=== PATIENT | male | born 1965 | race Caucasian/White ===

== ENCOUNTER 2017-08-08 09:46 | Emergency (ER) | payer SELFPAY ==
[~2017-08-08] VITALS: Ht 188 cm; Wt 139.0 kg
[2017-08-08] MEDS ORDERED: FLEXERIL10 MG PO (10:55)
[2017-08-08] MEDS ORDERED: PREDNISONE20 MG PO (10:55)
[2017-08-08 11:24] VITALS: BP 178/106
== END 2017-08-08 11:24 | disposition home or self-care (01) ==
LOC: EME 09:46
DX: M54.12 Radiculopathy, cervical region (principal); I10 Essential (primary) hypertension; F41.9 Anxiety disorder, unspecified; F17.200 Nicotine dependence, unspecified, uncomplicated
CPT/HCPCS: 99281; 99284; J7512